=== PATIENT | male | born 1970 | race Caucasian/White ===

== ENCOUNTER → 2019-10-02 | Outpatient (CLI) | payer OTHER ==
[~2019-10-02] MED LIST: CIPR500T87 PO; FOLI0.8T2 PO; LOSA50TA14 PO; METH2.5T PO; TEST5POW3 IM
== END | disposition home or self-care (01) ==
LOC: CFH 11:05
PROVIDERS: ATTEND Internal Medicine
DX: M20.12 Hallux valgus (acquired), left foot (principal); M77.32 Calcaneal spur, left foot; M77.31 Calcaneal spur, right foot; M19.072 Primary osteoarthritis, left ankle and foot; M19.071 Primary osteoarthritis, right ankle and foot